=== PATIENT | male | born 1995 | race Caucasian/White ===

== ENCOUNTER 2021-02-04 10:04 | Emergency (ER) | payer SELFPAY ==
[2021-02-04 10:05] VITALS: BP 141/80; PULSE 72; RESP 17; TEMP 37.1; O2SAT 98; BMI 24.3
--- NOTE | 2021-02-04 10:09 | XR_ITS ---
PROCEDURE INFORMATION: Exam: XR Right Shoulder Exam date and time: 02/04/2021 10:09 AM Age: 25 years old Clinical indication: Pain; Shoulder; Right; Additional info: Fell on arm while wrestling TECHNIQUE: Imaging protocol: XR Right shoulder. Views: 2 or more views. COMPARISON: No relevant prior studies available. FINDINGS: Bones/joints: Normal. Soft tissues: Normal. IMPRESSION: No acute findings.
[2021-02-04 10:40] VITALS: BP 141/80; PULSE 72; RESP 17; TEMP 37.1; O2SAT 98
--- NOTE | 2021-02-04 10:46 | HMH.EDUTC ---
[facility] – [place] Disposition Clinical Impression: Shoulder sprain Qualifiers: Encounter type: initial encounter Shoulder sprain type: unspecified sprain Laterality: right Qualified Code(s): S43.401A - Unspecified sprain of right shoulder joint, initial encounter Disposition: Home, Self-Care Condition on Discharge: Good Instructions: How To Perform RICE (Rest, Ice, Compress, Elevate), Methocarbamol, Etodolac, DI for Muscle Spasm Additional Instructions: *Etodolac brooke 8 hours with meal as needed for pain/inflammation *Not additional anti-inflammatory like Ibuprofen, asprin, motrin, aleve, advil with the above amount of Etodolac. You can still take Tylenol every 4 hours as needed if you need something else for pain *Ice 20 minutes every 2 hours for the first 48 hours after the initial injury followed by moist heat every 20 minutes 3-4 times a day to affected area *Muscle relaxer as prescribed as needed for muscle spasms but remember, it WILL cause drowsiness You cannot take it and drive, operate machinery or care for small children. *Keep this area active, no movement leads to more stiffness, However take it easy and avoid heavy lifting pushing or pulling and wear sling removing it several times throughout the day *Follow up with you family doctor if no improvement for further treatment Return if needed Prescriptions: Etodolac 200 mg PO Q8HP PRN #20 cap PRN Reason: Moderate Pain Transmission Status: Received by Siklu methocarbamoL [Methocarbamol 500mg Tablet] 500 mg PO BID PRN 5 Days #10 tab PRN Reason: Muscle Spasm Transmission Status: Received by [facility] Referrals: Provider,MD Yfn [Primary Care Provider] - As needed Brent Britt MD [Staff Physician] - Time of Disposition: 10:58 Medical Decision Making - Jorge Luis Inquiry Pt receiving controlled substance: No Jorge Luis was queried for this patient: No Vital Signs: 02/04/21 10:05 02/04/21 10:40 Temperature 98.7 F 98.7 F Temperature Source Oral Pulse Rate 72 Pulse Rate [Right Brachial] 72 Respiratory Rate 17 17 Blood Pressure 141/80 H Blood Pressure [Right Arm] 141/80 H Blood Pressure Mean [Right Arm] 100 Blood Pressure Source [Right Arm] Automatic Cuff Blood Pressure Position [Right Arm] Sitting 02 Sat by Pulse Oximetry 98 Oxygen Delivery Method Room Air - Radiology Data #1 Image(s): Shoulder Image Reviewed: Yes I reviewed the patient's radiology image w/the ED provider Preliminary Findings: No Fracture Seen [facility] – [place] HPI - General Stated complaint: ao 02/03/21 @ 1930 injury to Rt shoulder Time Seen by Provider: 02/04/21 10:46 Mode of Arrival: Ambulatory Source of Information: Patient Limitations: No Limitations Description of Symptoms (Recalled from Triage Doc. by RN): PATIENT C/O RIGHT SHOULDER INJURY. HE STATES HE WAS WRESTLING LAST NIGHT AND FELL ON IT HEENT Symptoms (Recalled from RN notes): No Resp Symptoms (Recalled from RN notes): No Skin Symptoms (Recalled from RN notes): No MS Symptoms (Recalled from RN notes): Yes Functional Status (Recalled from RN notes): WNL - History of Present Illness Provider Complaint: Patient state that he was wrestling around last night and fell and landed on his shoulder State that ever since he has been having pain in his shoulder and hurts when he moves it States that he feels tight in his right shoulder like he is having spasms and denies numbnes or tingling - Related Data Previous Rx's Medication Instructions Recorded Etodolac 200 mg PO Q8HP PRN #20 cap 02/04/21 methocarbamoL [Methocarbamol 500mg 500 mg PO BID PRN 5 Days #10 tab 02/04/21 Tablet] Allergies Allergy/AdvReac Type Severity Reaction Status Date / Time No Known Allergies Allergy Verified 02/04/21 10:28 - Worker's Comp Is this a Worker's Comp case?: No [facility] History - Hepatitis A Screen Drug use history?: No High risk sexual behaviors?: No History of sexually transmitted infection?: No C
== END 2021-02-04 11:11 | disposition home or self-care (01) ==
PROVIDERS: Emergency Provider Nurse Practitioner
DX: S43.401A Unspecified sprain of right shoulder joint, initial encounter (principal); X50.9XXA Other and unspecified overexertion or strenuous movements or postures, initial encounter; Y93.89 Activity, other specified; Y92.019 Unspecified place in single-family (private) house as the place of occurrence of the external cause
CPT/HCPCS: 73030; 99202; G0463